=== PATIENT | male | born 1955 | race Hispanic/Latino ===

== ENCOUNTER 2024-12-07 14:49 | Emergency (ER) | payer MEDICARE ==
[~2024-12-07] VITALS: Ht 170.2 cm; Wt 93.0 kg
[2024-12-07 15:32] VITALS: TEMP 98.7
[2024-12-07] MEDS ORDERED: SODIUM CHLORIDE FLUSH 10 ML SYR IV PRN (15:45)
[2024-12-07 16:03] LABS: BASOPHILS % 0.7 % (0.0-1.0); EOSINOPHILS % 2.0 % (0.0-6.0); LYMPHOCYTES % 25.7 % (18.0-39.1); MONOCYTES % 6.2 % (4.4-11.3); NEUTROPHILS % 65.1 % (38.7-80.0); RED CELL DISTRIBUTION WIDTH 12.1 % (11.7-14.4)
[2024-12-07 16:20] LABS: INR 0.98
[2024-12-07 16:27] LABS: EST GLOMERULAR FILTRATION RATE 64.0 ML/MIN (>=60)
[2024-12-07 16:51] VITALS: PULSE 53; RESP 18
[2024-12-07 17:44] LABS: LEUKOCYTE ESTERASE ,URINE NEGATIVE (NEGATIVE); PROTEIN,URINE DIPSTICK NEGATIVE (NEGATIVE)
[2024-12-07 17:45] LABS: EPITHELIAL CELLS,URINE FEW /LPF; URINE UROBILINOGEN 0.2 mg/dL (0.2 - 1); WBC,URINE (MAN) 0-5 /HPF (0-5)
[2024-12-07 19:57] VITALS: BP 127/80; PULSE 56; RESP 14; O2SAT 99
== END 2024-12-07 19:36 | disposition other institution (70) ==
LOC: ER 15:33
DX: R42 Dizziness and giddiness (principal); H53.8 Other visual disturbances; R25.1 Tremor, unspecified
CPT/HCPCS: 36415; 70450; 71045; 80053; 81001; 83880; 84484; 85025; 85610; 85730; 93005; 99284